=== PATIENT | female | born 1990 | race Caucasian/White ===

== ENCOUNTER 2017-07-13 07:12 | Emergency (ER) | payer BC ==
[~2017-07-13] VITALS: Ht 152.4 cm; Wt 61.2 kg
[2017-07-13] MEDS ORDERED: IV NORMAL SALINE 1,000ML 1,000 ML IV SCH (07:20)
--- NOTE | 2017-07-13 07:28 | PHYS DOC ---
Past History Past Medical History: No Pertinent History Past Surgical History: Other Smoking: Cigarettes, Greater than 1 pack/day Alcohol Use: Occasionally Drug Use: None Adult General Chief Complaint Chief Complaint: NAUSEA/VOMITING/DIARRHEA HPI HPI Patient is a pleasant 27-year-old female 0-1 who does not have menstrual periods secondary to control pills who presents with nausea vomiting diarrhea that began 4 days ago. She said she's had multiple episodes of nausea and vomiting daily where she cannot keep anything food down. It's nonbilious nonbloody. She denies any sick contacts, denies any travel outside the country, denies any recent antibiotics, denies any sick contacts at work. Patient says she has loose stool and diarrhea as well and she is feeling weak and dizzy at this point. She denies any abdominal pain, denies any trauma, denies any UTI symptoms or other complaints. Patient does not believe she is secondary to control pills. She does smoke, she does drink alcohol on occasion, but does not use any drugs. Review of Systems Review of Systems Constitutional: Denies fever or chills [] Eyes: Denies change in visual acuity, redness, or eye pain [] HENT: Denies nasal congestion or sore throat [] Respiratory: Denies cough or shortness of breath [] Cardiovascular: No additional information not addressed in HPI [] GI: Patient has no abdominal pain is having nausea, nonbilious nonbloody vomiting with nonbloody stools described as loose diarrhea. : Denies dysuria or hematuria [] Musculoskeletal: Denies back pain or joint pain [] Integument: Denies rash or skin lesions [] Neurologic: She is having a slight dull throbbing headache is not worse of life sudden not sudden onset without focal weakness or sensory changes [] Endocrine: Denies polyuria or polydipsia [] Current Medications Current Medications Current Medications Medications (Trade) Dose Ordered Sig/Chanda Start Time Stop Time Status Last Admin Dose Admin Ketorolac Tromethamine (Toradol) 30 mg 1X ONCE 07/13/17 07:30 07/13/17 07:31 UNV Ondansetron HCl (Zofran) 4 mg 1X ONCE 07/13/17 07:30 07/13/17 07:31 UNV Sodium Chloride (Normal Saline Flush) 10 ml QSHIFT PRN 07/13/17 07:30 UNV Physical Exam Physical Exam Other vital signs recorded on the chart patient noted to be hypertensive and tachycardic. Constitutional: Well developed, well nourished, no acute distress, non-toxic appearance. [] HENT: Normocephalic, atraumatic, bilateral external ears normal, dry mucous membranes no oral exudates, nose normal. [] Eyes: PERRLA, EOMI, conjunctiva normal, no discharge. [] Neck: Normal range of motion, no tenderness, supple, no stridor. [] Cardiovascular: Patient is tachycardic with no murmurs gallops or rubs Lungs & Thorax: Bilateral breath sounds clear to auscultation [] Abdomen: Bowel is soft, no tenderness, no masses, no pulsatile masses. Patient does have hyperactive bowel sounds. [] Skin: Warm, dry, no erythema, no rash. [] Back: No tenderness, no CVA tenderness. [] Extremities: No tenderness, no cyanosis, no clubbing, ROM intact, no edema. [] Neurologic: Alert and oriented X 3, normal motor function, normal sensory function, no focal deficits noted. [] Psychologic: Affect normal, judgement normal, mood normal. [] Current Patient Data Lab Results Laboratory Tests Test 07/13/17 07:25 07/13/17 07:30 07/13/17 07:47 Urine Collection Type Unknown Urine Color Yellow Urine Clarity Hazy Urine pH 6.5 Urine Specific Shepherd <=1.005 Urine Protein Neg (NEG-TRACE) Urine Glucose (UA) Neg mg/dL (NEG) Urine Ketones (Stick) Neg mg/dL (NEG) Urine Blood Large (NEG) Urine Nitrite Neg (NEG) Urine Bilirubin Neg (NEG) Urine Urobilinogen Dipstick 0.2 mg/dL (0.2 mg/dL) Urine Leukocyte Esterase Trace (NEG) Urine RBC 1-2 /HPF (0-2) Urine WBC Occ /HPF (0-4) Urine Squamous Epithelial Cells Few /LPF Urine Bacteria Few /HPF (0-FEW) Urine Mucus Slight /LPF White Blood Count 7.5 x10^3/uL (4.0-11.0) Red Blood Count 5.12 x10^6/uL (3.50-5.40) Hemoglobin 16.5 g/dL (12.0-15.5) H Hematocrit 46.6 % (36.0-47.0) Mean Corpuscular Volume 91 fL (79-100) Mean Corpuscular Hemoglobin 32 pg (25-35) Mean Corpuscular Hemoglobin Concent 36 g/dL (31-37) Red Cell Distribution Width 13.1 % (11.5-14.5) Platelet Count 297 x10^3/uL (140-400) Neutrophils (%) (Auto) 73 % (31-73) Lymphocytes (%) (Auto) 13 % (24-48) L Monocytes (%) (Auto) 10 % (0-9) H Eosinophils (%) (Auto) 3 % (0-3) Basophils (%) (Auto) 0 % (0-3) Neutrophils # (Auto) 5.5 x10^3uL (1.8-7.7) Lymphocytes # (Auto) 0.9 x10^3/uL (1.0-4.8) L Monocytes # (Auto) 0.8 x10^3/uL (0.0-1.1) Eosinophils # (Auto) 0.3 x10^3/uL (0.0-0.7) Basophils # (Auto) 0.0 x10^3/uL (0.0-0.2) Sodium Level 136 mmol/L (136-145) Potassium Level 3.6 mmol/L (3.5-5.1) Chloride Level 104 mmol/L (98-107) Carbon Dioxide Level 23 mmol/L (21-32) Anion Gap 9 (6-14) Blood Urea Nitrogen 9 mg/dL (7-20) Creatinine 0.7 mg/dL (0.6-1.0) Estimated GFR (Cockcroft-Gault) 98.9 BUN/Creatinine Ratio 13 (6-20) Glucose Level 94 mg/dL (70-99) Calcium Level 8.6 mg/dL (8.5-10.1) Total Bilirubin 0.6 mg/dL (0.2-1.0) Aspartate Amino Transferase (AST) 19 U/L (15-37) Alanine Aminotransferase (ALT) 31 U/L (14-59) Alkaline Phosphatase 84 U/L (46-116) Total Protein 7.5 g/dL (6.4-8.2) Albumin 3.6 g/dL (3.4-5.0) Albumin/Globulin Ratio 0.9 (1.0-1.7) L Lipase 88 U/L (73-393) POC Urine HCG, Qualitative hcg negative (Negative) EKG EKG [] Radiology/Procedures Radiology/Procedures [] Course & Med Decision Making Course & Med Decision Making Pertinent Labs and Imaging studies reviewed. (See chart for details)My abdominal pain differential includes but not limited to ectopic , UTI, pyonephritis, cholecystitis, cholelithiasis, pancreatitis, appendicitis, small bowel obstruction, large bowel obstruction, diverticulosis, Diverticulum, intussusception, volvulus, irritable bowel disease, Crohn's or ulcerative colitis, considered upon arrival Patient will be initially provided fluids, antiemetics and some pain meds this will not include any narcotics. Patient will have a set of electrolytes drawn CBC and urinalysis. We will also determine that she is not by point-of- care urinalysis and hCG []Patient tells me that their symptoms given during CC are improved. We reviewed labs and with patient and any family at bedside. Time is now 9 AM. Patient's hCG is negative, patient's urinalysis shows a urine specific gravity 1.005 without ketones, it does have some bacteria but also epithelial cells likely a contaminated sample. Patient is assured me she is not symptomatic with UTI symptoms. Patient's CMP is unremarkable otherwise unremarkable as was her CBC. She feels markedly improved like to go home with supportive medications. We talked about the use of antiemetics, antidiarrheals and a spasmodic agent Bentyl. She will follow-up with her primary care doctor if necessary Dragon Disclaimer Dragon Disclaimer This chart was dictated in whole or in part using Voice Recognition software in a busy, high-work load, and often noisy Emergency Department environment. It may contain unintended and wholly unrecognized errors or omissions. Departure Departure: Impression: Primary Impression: Nausea and vomiting Additional Impression: Diarrhea Disposition: 01 HOME, SELF-CARE Condition: IMPROVED Referrals: ELAINE GARRIDO MD (PCP) Patient Instructions: Diarrhea, Nausea and Vomiting Additional Instructions: My discharge plan Follow up: In addition patient is asked to followup with their primary doctor, within a week for followup examination and to address patient's ongoing medical conditions. Patient is advised that in the Emergency Department primary complaints are addressed and only in light of known signs and symptoms. Patient should return immediately to the emergency department if new signs and symptoms develop or patient's condition worsens in any way. At time of discharge patient was in stable condition and had verbalized understanding of the discharge instructions. Scripts Ondansetron (ZOFRAN ODT) 8 Mg Tab.rapdis 4 MG PO TID for 5 Days Prov: MICHELLE TATE MD 07/13/17 Diphenoxylate Hcl/Atropine (LOMOTIL TABLET) 1 Each Tablet 1 TAB PO QID, #20 TAB Prov: MICHELLE TATE MD 07/13/17 Dicyclomine Hcl (BENTYL) 10 Mg Capsule 1 CAP PO TID, #15 CAP.EC Prov: MICHELLE TATE MD 07/13/17 Problem Qualifiers MICHELLE TATE MD Jul 13, 2017 07:28
[2017-07-13] MEDS ORDERED: 0.9 % SODIUM CHLORIDE 10 ML DISP.SYRIN. IV PRN (07:30)
[2017-07-13] MEDS ORDERED: KETOROLAC 30 MG/ML VIAL. IV ONE (07:45)
[2017-07-13] MEDS ORDERED: ONDANSETRON PF 4 MG/2 ML VIAL. IV ONE (07:45)
[2017-07-13 08:03] LABS: BASO % 0 % (0-3); EOS # 0.3 x10^3/uL (0.0-0.7); EOS % 3 % (0-3); HEMATOCRIT 46.6 % (36.0-47.0); HEMOGLOBIN 16.5 g/dL (12.0-15.5); LYMPH # 0.9 x10^3/uL (1.0-4.8); LYMPH % 13 % (24-48); MEAN CORPUSCULAR HEMOGLOBIN 32 pg (25-35); MEAN CORPUSCULAR HGB CONC 36 g/dL (31-37); MEAN CORPUSCULAR VOLUME 91 fL (79-100); MONO # 0.8 x10^3/uL (0.0-1.1); MONO % 10 % (0-9); NEUT # 5.5 x10^3uL (1.8-7.7); NEUT % 73 % (31-73); PLATELET COUNT 297 x10^3/uL (140-400); RED BLOOD COUNT 5.12 x10^6/uL (3.50-5.40); RED CELL DISTRIBUTION WIDTH 13.1 % (11.5-14.5); WHITE BLOOD COUNT 7.5 x10^3/uL (4.0-11.0)
[2017-07-13 08:12] LABS: ALBUMIN 3.6 g/dL (3.4-5.0); ALBUMIN/GLOBULIN RATIO 0.9 (1.0-1.7); CALCIUM 8.6 mg/dL (8.5-10.1); CREATININE 0.7 mg/dL (0.6-1.0); GFR 98.9; POTASSIUM 3.6 mmol/L (3.5-5.1); TOTAL BILIRUBIN 0.6 mg/dL (0.2-1.0); TOTAL PROTEIN 7.5 g/dL (6.4-8.2)
[2017-07-13 08:31] VITALS: BP 102/57
[2017-07-13 08:37] LABS: BACTERIA,URINE FEW /HPF (0-FEW); BILIRUBIN,URINE NEG (NEG); CLARITY,URINE HAZY; COLOR,URINE YELLOW; GLUCOSE,URINE NEG (NEG); NITRITE,URINE NEG (NEG); SQUAMOUS EPITHELIAL CELL,UR FEW /LPF; UROBILINOGEN,URINE 0.2 mg/dL (0.2 mg/dL); WBC,URINE OCC /HPF (0-4)
[2017-07-13] MEDS ORDERED: DICY10CA53 PO (09:02)
[2017-07-13] MEDS ORDERED: ONDA8TAB12 PO (09:02)
[2017-07-13] MEDS ORDERED: DIPH1TAB PO (09:02)
== END 2017-07-13 09:11 | disposition home or self-care (01) ==
LOC: ER 07:12
DX: R11.2 Nausea with vomiting, unspecified (principal); R19.7 Diarrhea, unspecified; R51 Headache; F17.210 Nicotine dependence, cigarettes, uncomplicated
CPT/HCPCS: 36415; 80053; 81001; 81025; 83690; 85025; 87086; 96361; 96374; 96375; 99284; J1885; J2405; J7030

== ENCOUNTER 2019-03-01 08:43 | Emergency (ER) | payer BC ==
[~2019-03-01] VITALS: Ht 152.4 cm; Wt 61.2 kg
[~2019-03-01 08:43] MED LIST: DICY10CA53 PO; DIPH1TAB PO; ONDA8TAB12 PO
[2019-03-01] MEDS ORDERED: IV NORMAL SALINE 1,000ML 1,000 ML IV SCH (09:05)
--- NOTE | 2019-03-01 09:08 | PHYS DOC ---
Past History Past Medical History: Endometriosis Past Surgical History: Other Smoking: Cigarettes, Greater than 1 pack/day Alcohol Use: Occasionally Drug Use: None Adult General Chief Complaint Chief Complaint: ABDOMINAL PAIN HPI HPI Patient is a 28-year-old female who presents with complaint of mid abdominal discomfort that is been going on since yesterday. She states that she has had some bloating. She denies any nausea, vomiting or diarrhea. She also denies any fever or urinary discomfort. She indicates that she has radiation of the pain into her lower back. She rates pain at a 7 out of 10 and describes it as a deep ache. Patient is not aware of any exacerbating or alleviating factors. Review of Systems Review of Systems Constitutional: Denies fever or chills [] Respiratory: Denies cough or shortness of breath [] Cardiovascular: No additional information not addressed in HPI [] GI: Complains of abdominal pain without vomiting or diarrhea [] : Denies dysuria or hematuria [] Musculoskeletal: Complains of lower back pain [] All other systems were reviewed and found to be within normal limits, except as documented in this note. Allergies Allergies Allergies Coded Allergies Type Severity Reaction Last Updated Verified No Known Drug Allergies 07/13/17 No Physical Exam Physical Exam Constitutional: Well developed, well nourished, no acute distress, non-toxic appearance. [] HENT: Normocephalic, atraumatic, bilateral external ears normal, oropharynx moist, no oral exudates, nose normal. [] Eyes: PERRLA, EOMI, conjunctiva normal, no discharge. [] Neck: Normal range of motion, no tenderness, supple, no stridor. [] Cardiovascular:Heart rate regular rhythm, no murmur [] Lungs & Thorax: Bilateral breath sounds clear to auscultation [] Abdomen: Bowel sounds normal, soft, no tenderness. [] Skin: Warm, dry, no erythema, no rash. [] Extremities: No tenderness, no cyanosis, no clubbing, ROM intact, no edema. [] Neurologic: Alert and oriented X 3, no focal deficits noted. [] Current Patient Data Vital Signs Vital Signs Date Time Temp Pulse Resp B/P (MAP) Pulse Ox O2 Delivery O2 Flow Rate FiO2 03/01/19 08:57 97.8 94 16 100 Room Air EKG EKG [] Radiology/Procedures Radiology/Procedures [] Impressions: PROCEDURE: CT ABD PELV W/ IV CONTRST ONLY Examination: CT of the abdomen pelvis with IV contrast HISTORY: History of abdominal pain COMPARISON: None available TECHNIQUE: Axial CT images of the abdomen pelvis were performed with IV contrast. Coronal and sagittal reformats are performed Exposure: One or more of the following individualized dose reduction techniques were utilized for this examination: 1. Automated exposure control 2. Adjustment of the mA and/or kV according to patient size 3. Use of iterative reconstruction technique FINDINGS: The bibasilar lungs are clear. No evidence of free air identified in the abdomen. The visualized liver, spleen, adrenals grossly appears unremarkable. The gallbladder is mildly distended. The stomach is mildly distended. The visualized pancreas grossly appears unremarkable. Mild fluid distended small bowel loops identified throughout the abdomen with surrounding mild inflammatory fat stranding. The visualized appendix grossly appears unremarkable. The gallbladder is mildly distended. Feces and gas noted in the colon. The bilateral kidneys enhance symmetrically. The caliber of the aorta grossly appears unremarkable. No evidence of lytic bony destructive lesion. IMPRESSION: 1. Mild fluid distended small bowel loops identified in the abdomen throughout with surrounding inflammatory fat stranding likely enteritis. Electronically signed by: Vivek Hedrick MD (03/01/2019 10:04 AM) [id number] Course & Med Decision Making Course & Med Decision Making Pertinent Labs and Imaging studies reviewed. (See chart for details) [] Dragon Disclaimer Dragon Disclaimer This electronic medical record was generated, in whole or in part, using a voice recognition dictation system. Departure Departure: Impression: Primary Impression: Enteritis Disposition: HOME, SELF-CARE Condition: STABLE Referrals: ELAINE GARRIDO MD (PCP) Patient Instructions: Form - Excuse from Work, School, or Physical Activity, Viral Gastroenteritis Scripts Tramadol Hcl (TRAMADOL HCL) 50 Mg Tablet 50 MG PO PRN Q6HRS PRN for PAIN, #12 TAB Prov: ROSA FRANCO Jr. DO 03/01/19 Ondansetron Hcl (ZOFRAN) 4 Mg Tablet 4 MG PO Q6HRS PRN for NAUSEA, #12 TAB Prov: ROSA FRANCO Jr. DO 03/01/19 ROSA FRANCO Jr. DO March 01, 2019 09:08
[2019-03-01] MEDS ORDERED: MORPHINE SULFATE 2 MG/ML DISP.SYRIN. IV/SQ PRN (09:15)
[2019-03-01] MEDS ORDERED: ONDANSETRON PF 4 MG/2 ML VIAL. IV ONE (09:15)
[2019-03-01] MEDS ORDERED: FAMOTIDINE 20 MG/2 ML VIAL IVP ONE (09:15)
[2019-03-01 09:24] LABS: BASO # 0.1 x10^3/uL (0.0-0.2); BASO % 1 % (0-3); EOS # 0.1 x10^3/uL (0.0-0.7); EOS % 1 % (0-3); HEMATOCRIT 42.7 % (36.0-47.0); HEMOGLOBIN 14.5 g/dL (12.0-15.5); LYMPH # 1.5 x10^3/uL (1.0-4.8); LYMPH % 19 % (24-48); MEAN CORPUSCULAR HEMOGLOBIN 31 pg (25-35); MEAN CORPUSCULAR HGB CONC 34 g/dL (31-37); MEAN CORPUSCULAR VOLUME 92 fL (79-100); MONO # 0.5 x10^3/uL (0.0-1.1); MONO % 7 % (0-9); NEUT # 5.7 x10^3uL (1.8-7.7); NEUT % 73 % (31-73); PLATELET COUNT 290 x10^3/uL (140-400); RED BLOOD COUNT 4.63 x10^6/uL (3.50-5.40); RED CELL DISTRIBUTION WIDTH 13.3 % (11.5-14.5); WHITE BLOOD COUNT 7.8 x10^3/uL (4.0-11.0)
[2019-03-01] MEDS ORDERED: IOHEXOL 300 MG/ML 75 ML VIAL. IV ONE (09:30)
[2019-03-01] MEDS ORDERED: MORPHINE SULFATE 4 MG/ML DISP.SYRIN. IV/SQ PRN (09:30)
[2019-03-01 09:34] LABS: AMORPHOUS SEDIMENT,UR PRESENT /HPF; BACTERIA,URINE MOD /HPF (0-FEW); BILIRUBIN,URINE NEG (NEG); CLARITY,URINE CLOUDY; COLOR,URINE AMBER; GLUCOSE,URINE 100 mg/dL (NEG); NITRITE,URINE NEG (NEG); SQUAMOUS EPITHELIAL CELL,UR MANY /LPF; UROBILINOGEN,URINE 0.2 mg/dL (0.2 mg/dL)
[2019-03-01 09:48] LABS: ALBUMIN 3.2 g/dL (3.4-5.0); CALCIUM 8.9 mg/dL (8.5-10.1); CREATININE 0.7 mg/dL (0.6-1.0); GFR 98.3; POTASSIUM 3.7 mmol/L (3.5-5.1); TOTAL BILIRUBIN 0.2 mg/dL (0.2-1.0); TOTAL PROTEIN 6.5 g/dL (6.4-8.2)
--- NOTE | 2019-03-01 10:07 | RAD ---
Examination: CT of the abdomen pelvis with IV contrast HISTORY: History of abdominal pain COMPARISON: None available TECHNIQUE: Axial CT images of the abdomen pelvis were performed with IV contrast. Coronal and sagittal reformats are performed Exposure: One or more of the following individualized dose reduction techniques were utilized for this examination: 1. Automated exposure control 2. Adjustment of the mA and/or kV according to patient size 3. Use of iterative reconstruction technique FINDINGS: The bibasilar lungs are clear. No evidence of free air identified in the abdomen. The visualized liver, spleen, adrenals grossly appears unremarkable. The gallbladder is mildly distended. The stomach is mildly distended. The visualized pancreas grossly appears unremarkable. Mild fluid distended small bowel loops identified throughout the abdomen with surrounding mild inflammatory fat stranding. The visualized appendix grossly appears unremarkable. The gallbladder is mildly distended. Feces and gas noted in the colon. The bilateral kidneys enhance symmetrically. The caliber of the aorta grossly appears unremarkable. No evidence of lytic bony destructive lesion. IMPRESSION: 1. Mild fluid distended small bowel loops identified in the abdomen throughout with surrounding inflammatory fat stranding likely enteritis. Electronically signed by: Vivek Hedrick MD (03/01/2019 10:04 AM) [id number]
[2019-03-01 10:33] VITALS: BP 130/77
[2019-03-01] MEDS ORDERED: TRAM50TA PO (10:46)
[2019-03-01] MEDS ORDERED: ONDA4TAB7 PO (10:46)
== END 2019-03-01 11:09 | disposition home or self-care (01) ==
LOC: ER 08:43
DX: K52.9 Noninfective gastroenteritis and colitis, unspecified (principal); F17.210 Nicotine dependence, cigarettes, uncomplicated
CPT/HCPCS: 36415; 74177; 80053; 81001; 81025; 83690; 85025; 87086; 96361; 96374; 96375; 99285; J2270; J2405; J3490; Q9967; J7030